=== PATIENT | female | born 1965 | race Caucasian/White ===

== ENCOUNTER 2020-12-07 22:40 | Emergency (ER) | payer MEDICAID, SELFPAY ==
[~2020-12-07 22:40] MED LIST: Iopamidol 370 76% 100 ML VIAL ONE
[2020-12-08 00:01] LABS: Band 2 % (5-11); Eosinophils 5 % (0-10); Hemoglobin 14.2 g/dL (12.0-16.0); Lymphocytes 21 % (21-51); MDiff Complete? YES; Mean Corpuscular HGB CONC 31.8 g/dL (32.0-36.0); Mean Corpuscular Volume 91.3 fL (78.0-98.0); Mean Platelet Volume 7.4 fL (7.4-10.4); Monocytes 9 % (0-10); Neutrophil 63 % (42-75); Platelet Count 227 thou/uL (130-400); RBC Distribution Width 11.7 % (11.5-14.5); RBC Morphology Normal; White Blood Cell (WBC) Count 8.9 thou/uL (4.8-10.8)
[2020-12-08 00:07] LABS: ALT (SGPT) 13 U/L (8-55); AST (SGOT) 16 U/L (5-34); Alkaline Phosphatase 75 U/L (40-110); Anion Gap 12 mmol/L (10-20); BUN (Urea Nitrogen) 23 mg/dL (9.8-20.1); Bilirubin, Total 0.3 mg/dL (0.2-1.2); Calc. Creatinine Clearance 0 mL/min (70-130); Calcium 9.4 mg/dL (7.8-10.44); Carbon Dioxide 28 mmol/L (22-29); Chloride 107 mmol/L (98-107); Globulin 2.6 g/dL (2.4-3.5); Glucose 105 mg/dL (70-105); Lipase 28 U/L (8-78); Potassium 3.8 mmol/L (3.5-5.1); Protein, Total 6.6 g/dL (6.0-8.3); Sodium 143 mmol/L (136-145)
== END 2020-12-08 00:47 | disposition home or self-care (01) ==
LOC: MADERS 22:40
DX: S20.211A Contusion of right front wall of thorax, initial encounter (principal); E03.9 Hypothyroidism, unspecified; F17.210 Nicotine dependence, cigarettes, uncomplicated; Y04.8XXA Assault by other bodily force, initial encounter
CPT/HCPCS: 71260; 74177; 80053; 83690; 85025; Q9967

== ENCOUNTER 2021-11-01 20:42 | Emergency (ER) | payer MEDICAID, OTHER ==
[2021-11-01] MEDS ORDERED: Ketorolac Tromethamine 30 MG/ML VIAL ONE (22:56)
== END 2021-11-01 23:23 | disposition home or self-care (01) ==
LOC: MADERS 20:42
DX: S80.01XA Contusion of right knee, initial encounter (principal); S70.02XA Contusion of left hip, initial encounter; M16.11 Unilateral primary osteoarthritis, right hip; M25.461 Effusion, right knee; E03.9 Hypothyroidism, unspecified; F17.210 Nicotine dependence, cigarettes, uncomplicated; W19.XXXA Unspecified fall, initial encounter
CPT/HCPCS: 96372; J1885